=== PATIENT | male | born 1965 | race Caucasian/White ===

== ENCOUNTER → 2017-01-28 | Day surgery (SDC) | payer OTHER ==
[~2017-01-28] VITALS: Ht 167.6 cm; Wt 82.6 kg
[2017-01-28 10:12] LABS: HCT 45.3 % (42.0-52.0); HGB 15.3 g/dl (13.2-18.0); MCHC 33.8 g/dL (32.0-36.0); MCV 94.8 fL (78.0-100.0); MPV 10.1 fL (6.0-9.5); RBC 4.78 M/uL (4.70-6.00); RDW 13.5 % (11.5-14.0); WBC 7.8 K/uL (4.0-10.5)
[2017-01-28 10:20] LABS: ALBUMIN 3.9 g/dL (3.5-5.0); BILIRUBIN - TOTAL 0.4 mg/dL (0.1-1.0); CREATININE 0.8 mg/dL (0.7-1.2); GLOBULIN (CALCULATION) 2.6 g/dL (2.2-4.2); POTASSIUM 3.9 mmol/L (3.5-5.1); TOTAL PROTEIN 6.5 g/dL (6.4-8.3)
== END | disposition home or self-care (01) ==
LOC: FAS 08:00
PROVIDERS: Surgery
DX: D13.5 Benign neoplasm of extrahepatic bile ducts (principal); K81.1 Chronic cholecystitis; K21.9 Gastro-esophageal reflux disease without esophagitis; Z79.899 Other long term (current) drug therapy; G47.30 Sleep apnea, unspecified; Z99.89 Dependence on other enabling machines and devices; F17.210 Nicotine dependence, cigarettes, uncomplicated
CPT/HCPCS: 36415; 74300; 80053; 88304; J1170; J2405; J2704; J3010; Q9962